=== PATIENT | female | born 1990 | race Caucasian/White ===

== ENCOUNTER 2019-05-24 13:47 | Emergency (ER) | payer OTHER ==
[~2019-05-24] VITALS: Ht 152.4 cm; Wt 92.5 kg
[2019-05-24] MEDS ORDERED: TESSALON PERLE100 MG PO (15:16)
[2019-05-24 15:30] VITALS: BP 152/86
== END 2019-05-24 15:31 | disposition home or self-care (01) ==
LOC: ER 13:47
DX: J06.9 Acute upper respiratory infection, unspecified (principal); F17.210 Nicotine dependence, cigarettes, uncomplicated